=== PATIENT | female | born 1945 | race Caucasian/White ===

== ENCOUNTER → 2016-06-25 | Outpatient (CLI) | payer OTHER, BC | LOC: MMPC 11:11 | DX: J44.0 Chronic obstructive pulmonary disease with (acute) lower respiratory infection (principal) | CPT/HCPCS: 94640; 99212; G0463 ==

== ENCOUNTER → 2016-11-30 | Outpatient (CLI) | payer OTHER, BC ==
[2016-11-30 07:54] LABS: HEMATOCRIT 38.3 % (37.0-47.0); HEMOGLOBIN 11.8 g/dL (12.0-16.0); MEAN CORPUSCULAR HEMOGLOBIN 26.2 PG (27-31); MEAN CORPUSCULAR HGB CONC 30.8 g/dL (33-37); MEAN CORPUSCULAR VOLUME 84.9 FL (81-99); MEAN PLATELET VOLUME 8.2 FL (7.4-12.2); RED BLOOD COUNT 4.51 10^6/uL (4.20-5.40)
[2016-11-30 08:13] LABS: HEMOGLOBIN A1C 6.76 % (4.2-6.0)
[2016-11-30 08:14] LABS: CALCIUM 9.5 mg/dL (8.7-10.7); CHOL/HDL RATIO 2.82 RATIO (0-4.0); LDL CHOLESTEROL,CALCULATED 58.2 mg/dL; SERUM ALBUMIN 3.8 g/dL (3.5-4.8)
[2016-11-30 08:27] LABS: FREE T4 (FREE THYROXINE) 1.45 ng/dL (0.93-1.71)
[2016-12-01 08:41] LABS: HEP B CORE IGM ANTIBODY Negative (Negative); HEPATITIS A IGM Negative (Negative); HEPATITIS B SURFACE AG Negative (Negative)
== END ==
LOC: LAB 07:19
PROVIDERS: ATTEND Family Medicine
DX: E11.9 Type 2 diabetes mellitus without complications (principal); I10 Essential (primary) hypertension; D50.0 Iron deficiency anemia secondary to blood loss (chronic); Z11.59 Encounter for screening for other viral diseases; F17.200 Nicotine dependence, unspecified, uncomplicated
CPT/HCPCS: 36415; 80053; 80061; 83036; 84439; 84443; 85027; 86705; 86709; 86803; 87340

== ENCOUNTER → 2016-12-02 | Outpatient (CLI) | payer OTHER, BC | LOC: MMPC 09:00 | PROVIDERS: ATTEND Family Medicine | DX: J44.9 Chronic obstructive pulmonary disease, unspecified (principal); E11.9 Type 2 diabetes mellitus without complications; I10 Essential (primary) hypertension; L98.8 Other specified disorders of the skin and subcutaneous tissue | CPT/HCPCS: 99214; G0463 ==

== ENCOUNTER 2016-12-21 09:51 | Inpatient (IN) | payer OTHER, BC ==
[2016-12-21] MEDS ORDERED: NORMAL SALINE 10 ML SYRINGE FLUSH IVP PRN (10:08)
[2016-12-21] MEDS ORDERED: ALBUTEROL SULFATE 2.5 MG/3 ML NEB ONE (10:08)
--- NOTE | 2016-12-21 10:15 | EKG ---
[address] [place] [address] Measurements Intervals [place] Rate: 109 P: 24 IN: 140 QRS: 149 QRSD: 88 T: 49 QT: 324 QTc: 388 Interpretive Statements SINUS TACHYCARDIA WITH OCCASIONAL SUPRAVENTRICULAR PREMATURE COMPLEXES POSSIBLE RIGHT VENTRICULAR HYPERTROPHY [SOME/ALL OF: PROMINENT R IN V1, LATE TRANSITION, RAD, ZULEMA, SSS] Compared to ECG 09/14/2015 08:17:12 Sinus rhythm no longer present Sinus arrhythmia no longer present Electronically Signed On 12-21-16 11:19:01 MDT by Tre Gardner MD [email or web address]
--- NOTE | 2016-12-21 10:19 | PDOC ---
Dyspnea HPI - General Chief Complaint: Dyspnea Stated Complaint: "I CAN'T GET ANY AIR" Date Seen by Provider: 12/21/16 Time Seen by Provider: 10:13 Source: POSITIVE: Patient Exam Limitations: POSITIVE: No limitations Treatment Prior to Arrival: REPORTS: None Nurse's Notes Reviewed & Considered: Yes - History of Present Illness Initial Comments: Patient is a 71 y/o female who presents to the ER with SOB. She reports that this started in the morning. Possible cough. Has used inhaler without improvement. Had chest pain last week, left sided, no exacerbating or relieving factors. She had discussed this with her regular doctor who told her that it was something with her ribs. Patient denies fevers, but did not take her temperature. Patient did have a single episode of nausea and vomiting this morning. She does continue to smoke despite her COPD. No pain or swelling in her lower extremities. She does report that this feels similar to her prior pneumonia. - Patient Home Medications Home Medications: Home Medications Ascorbic Acid [Vitamin C] 1 tab PO BID 06/21/11 Glucosa Talavera 2Kcl/Chondroitin Talavera [Glucosamine Chondroitin Caplet] 1 each PO BID # 0 10/29/11 Magnesium 250 mg PO BID #0 10/29/11 Cetirizine HCl [Zyrtec] 1 mg PO DAILY tab 12/31/13 Calcium Citrate/Vitamin D3 [Citracal-Vit D 200 mg-250 Tab] 1 each PO DAILY tab 05/07/15 Guaifenesin [Mucinex] 1,200 mg PO BID #60 tab 05/07/15 Pnv95/Iron Fum/Folic Acid [ Caplet] 1 each PO DAILY tab 05/07/15 Atorvastatin Calcium [Lipitor] 10 mg PO DAILY #90 tab 12/04/15 Citalopram Hydrobromide [Celexa] 1 tab PO DAILY #90 tab 12/04/15 Montelukast Sodium [Singulair] 1 tab PO QD #90 tab 04/19/16 Tiotropium [place] [Spiriva] 1 puff INH DAILY #90 inh 06/09/16 Albuterol Sulfate [Ventolin Hfa] 2 puff INH Q4-6H #1 inh 07/05/16 Amlodipine Besylate 1 tab PO DAILY #30 tab 08/13/16 Bupropion HCl [Wellbutrin Sr] 1 tab PO QD #30 tab 08/16/16 Mometasone/Formoterol [Dulera 200 Mcg/5 Mcg Inhaler] 2 puff INH BID #3 inhaler 10/11/16 Alprazolam 1 tab PO TID #60 tab 12/03/16 Fluticasone Propionate [Flovent Hfa] 1 puff INH QID #1 inh 12/03/16 - Patient Allergies Allergies/Adverse Reactions: Allergies Allergy/AdvReac Type Severity Reaction Status Date / Time chocolate flavor Allergy Severe Anaphylaxis Verified 12/21/16 10:02 venom-honey bee Allergy Severe Anaphylaxis Verified 12/21/16 10:02 oxycodone HCl [From Percocet] AdvReac Severe sedated, Verified 12/21/16 10:02 lost 3 days of memory, disorientation CHOCOLATE Allergy Severe Anaphylaxis Uncoded 12/21/16 10:02 FRAGRANCES AdvReac Severe MULTIPLE Uncoded 12/21/16 10:02 DIFF REACTIONS TO NUMEROUS FRAGRANCES Past Medical History - heen HEENT History: Cataracts, Hard of Hearing, Dentures/Partials Additional HEENT History: ELY SHOSHONE out of right ear. Cataract surgery on the right eye. FULL DENTURES Cardiovascular History: Hypertension, Hyperlipidemia Additional Cardiovasular History: CHEST PAIN-SENT TO [facility]- FOUND SMALL AMOUNT OF PLAQUE AND NOW ON LIPITOR Respiratory History: Asthma, COPD, Shortness of Breath, Pneumonia, Sleep Apnea, Home Oxygen Use Gastrointestinal History: Denies History Genitourinary History: Denies History Endocrine History: Denies History Additional Endocrine History: PT WAS PUT ON DIABETIC MEDICATION AND THEN LOST 50 PLUS POUNDS AND NO LONGER ON MEDICATION Musculoskeletal History: Arthritis, Back Pain, Joint Pain, Osteoarthritis Prosthesis or Implant: No Neurological History: Denies History Blood Disorders: Anemia Psychiatric History: Depression, Anxiety Disorders History of Sexually Transmitted Diseases: No Cancer History: Breast, Other (please comment) Cancer Treatment / Date(s) of Treatment: LUMPECTOMY AND RADIATION IN 2006 History of MDRO: No History of Other Communicable Diseases: No Alcohol Use: Rarely Substance Use Type: None Previous Surgical History: Yes Type / Date of Surgery: CORONARY ANGIOGRAM 2013/UTERINE ABLATION/ RIGHT LUMPECTOMY 1956/ SEACEOUS CYST/ MOLE EXCISION/ D&C/LUMPECTOMY Anesthesia Reactions: No Malignant Hyperthermia: No Significant Family History: Asthma, Heart disease, Cancer, COPD, Diabetes, Hypertension, Lung disease, Renal disease Additional Family History: MOTHER HAD BREAST CA, FATHER HAD THROAT CA Past Medical History Reviewed: Reviewed - No Changes ROS - Limitations ROS Limitations: No Limitations Constitution: DENIES: Chills, Fever Cardiovascular: REPORTS: Chest Pain Respiratory: REPORTS: Cough Non Productive, Shortness Of Breath. DENIES: Hurts To Breathe Neurological: REPORTS: Headache Gastrointestinal: REPORTS: Nausea, Vomitting Endocrine: REPORTS: Denies Symptoms Musculoskeletal: REPORTS: Muscle Aches, Neck Pain Genitourinary: REPORTS: Denies Symptoms Eyes: REPORTS: Denies Symptoms ENT: REPORTS: Denies Symptoms Skin: REPORTS: Denies Skin Symptoms Lympathic: REPORTS: Denies Lympathic Symptoms Immunologic: POSITIVE: Denies Symptoms Psychiatric: POSITIVE: Denies Psych Symptoms Dyspnea Physical Exam - General Appearance General Appearance: REPORTS: Alert, Cooperative, No Acute Distress, No Evidence of Trauma - HEENT HEENT: POSITIVE: Head Inspection Nml, Eyes Inspection Nml, Ears Inspection Nml, Nose Inspection Nml, PERRL - Neck Neck: REPORTS: Normal Inspection - Respiratory Respiratory: REPORTS: Speaks Full Sentences, Wheezes. DENIES: Respiratory Distress, Retractions - Cardiovascular Cardiovascular: REPORTS: Tachycardia - Abdomen Abdomen: Soft: (All Quadrants), Normal Bowel Sounds: (All Quadrants), No Splenomegaly: (All Quadrants), No Hepatomegaly: (All Quadrants), No Guarding: ( All Quadrants), No Rebound: (All Quadrants) - Skin Skin: REPORTS: Intact, Warm, Dry - Extremities Extremity: Non-Tender: (All Extremities), Normal ROM: (All Extremities), Normal Inspection: (All Extremities) - Neurological / Psychological Neurological: POSITIVE: Affect Apporpriate, Oriented X3 Dyspnea Progress - Results Reviewed by me Discussed with Radiologist: Yes Radiology Findings: Left lower lobe PNA Lab Results:: Laboratory Results 12/21/16 Range/Units 10:13 WBC 15.73 H (4.8-10.8) 10^3/uL RBC 4.73 (4.20-5.40) 10^6/uL Hgb 12.0 (12.0-16.0) g/dL Hct 39.8 (37.0-47.0) % MCV 84.1 (81-99) FL MCH 25.4 L (27-31) PG MCHC 30.2 L (33-37) g/dL RDW Std Deviation 46.9 (39-50) fL RDW Coeff of Kevin 15.4 H (11.5-14.5) % Plt Count 374 H (140-350) 10*3/uL MPV 8.3 (7.4-12.2) FL Immature Gran % (Auto) 0.3 (0-5) % Neut % (Auto) 82.7 H (50-80) % Lymph % (Auto) 8.3 L (10-50) % [place] % (Auto) 8.1 (5-15) % Eos % (Auto) 0.3 (0-8) % Baso % (Auto) 0.3 (0-1) % Immature Gran # (Auto) 0.05 10*3/UL Neut # (Auto) 13.02 10*3/UL Lymph # (Auto) 1.30 10*3/uL [place] # (Auto) 1.27 H (0.3-0.8) 10*3/UL Eos # (Auto) 0.05 10*3/UL Baso # (Auto) 0.04 10*3/UL WBC Morphology Comment Normal morphology (NORM) Plt Morphology Comment Normal morphology (NORM) RBC Morph Comment Normal morphology (NORM) Sodium 135 (135-145) meq/L Potassium 4.0 (3.8-5.2) meq/L Chloride 96 L (98-112) meq/L Carbon Dioxide 34 H (23-33) meq/L Anion Gap 5 (5-20) BUN 8 (7-22) mg/dL Creatinine 0.4 L (0.50-1.20) mg/dL Estimated GFR Nursing Program Manager BUN/Creatinine Ratio 20.00 (6-20) Glucose 249 H (78-110) mg/dL Calculated Osmolality 285.0 (267-292) mOsm/kg Calcium 9.5 (8.7-10.7) mg/dL Total Bilirubin 0.7 (0.3-1.2) mg/dL AST 27 (8-39) IU/L ALT 25 (9-52) IU/L Alkaline Phosphatase 99 (38-126) IU/L Troponin I < 0.012 (< 0.040) ng/mL Total Protein 8.1 H (6.1-8.0) g/dL Albumin 3.7 (3.5-4.8) g/dL Globulin 4.4 H (2.50-4.10) g/dL Albumin/Globulin Ratio 0.80 L (1.3-2.0) mg/g EKG Interpretation:: POSITIVE: Other ( Sinus tachycardia. PAC. No STEMI. Normal axis.) - Patient's Progress MDM / ED Course: Patient is a 71 y/o female who presents with SOB. Her vitals are notable for tachycardia and hypoxia. Examination demonstrates well appearing female in NAD with wheezing. Differential diagnosis includes but is not limited to COPD exacerbation, ACS, viral syndrome, or PNA. EKG demonstrates sinus tachycardia without acute changes. CBC was noted for elevated WBC. Lactate is normal. Her VBG does not demonstrate evidence of respiratory acidosis. Patient was treated with albuterol nebulizer with improvement in wheezing. CXR does demonstrate findings consistent with left lower lobe PNA. Blood cultures were drawn and patient was given ceftriaxone and azithromycin. Patient will be admitted for further treatment. - Consult Consult (If Yes, Name of Consulting MD & Time Called): Yes (Nichole ) Consulting MD will see pt:: POSITIVE: [facility] [place] Patient Care Time - Estimated PCT Patient Care Time (In Minutes): 35 Vital Signs - Recent Vital Signs Vital Signs: Vital Signs (Last 8 hours) Temp Pulse Resp BP Pulse Ox 12/21/16 11:47 99.3 F 12/21/16 11:46 99.3 F 102 H 18 116/61 91 12/21/16 11:19 103 H 20 123/66 93 12/21/16 10:10 106 H 22 93 12/21/16 10:05 108 H 24 95 12/21/16 10:00 99.7 F H 111 H 24 136/71 78 12/21/16 09:52 99.7 F H 125 H 24 136/71 2 - VS Reviewed Vital Signs Reviewed: Yes Discharge Clinical Impression: Pneumonia Discharge Disposition: Admit to Inpatient Condition: Fair Date Decision to Admit to Inpatient: 12/21/16 Time Decision to Admit to Inpatient: 11:43
[2016-12-21 10:25] LABS: BASOPHILS # (AUTO) 0.04 10*3/UL; BASOPHILS % (AUTO) 0.3 % (0-1); EOSINOPHILS # (AUTO) 0.05 10*3/UL; EOSINOPHILS % (AUTO) 0.3 % (0-8); HEMATOCRIT 39.8 % (37.0-47.0); MEAN CORPUSCULAR HEMOGLOBIN 25.4 PG (27-31); MEAN CORPUSCULAR HGB CONC 30.2 g/dL (33-37); MEAN CORPUSCULAR VOLUME 84.1 FL (81-99); MEAN PLATELET VOLUME 8.3 FL (7.4-12.2); MONOCYTES # (AUTO) 1.27 10*3/UL (0.3-0.8); MONOCYTES % (AUTO) 8.1 % (5-15); NEUTROPHILS # (AUTO) 13.02 10*3/UL; NEUTROPHILS % (AUTO) 82.7 % (50-80); RED BLOOD COUNT 4.73 10^6/uL (4.20-5.40)
[2016-12-21 10:27] LABS: PLATELET MORPHOLOGY COMMENT NORMAL MORPHOLOGY (NORM); RBC MORPHOLOGY COMMENT NORMAL MORPHOLOGY (NORM); WBC MORPHOLOGY COMMENT NORMAL MORPHOLOGY (NORM)
[2016-12-21 10:29] LABS: BLOOD UREA NITROGEN 8 mg/dL (7-22); CALCIUM 9.5 mg/dL (8.7-10.7); SERUM ALBUMIN 3.7 g/dL (3.5-4.8)
[2016-12-21] MEDS ORDERED: IBUPROFEN 600 MG TABLET PO ONE (10:58)
[2016-12-21] MEDS ORDERED: cefTRIAXone Inj 1 GM in Sodium Chloride 0.9% 100 ML IV ONE (11:27)
[2016-12-21] MEDS ORDERED: AZITHROMYCIN 250 MG TABLET PO ONE (11:27)
--- NOTE | 2016-12-21 11:27 | DI ---
PA /LATERAL CHEST X-RAY, 12/21/2016 10:08 AM : Clinical History: Cough and dyspnea. Previous Exam: 09/06/2015; 09/14/2015. Comparison is also made with a CT scan with IV contrast from 2015. There is no acute soft tissue or bony abnormality. Heart size is normal. There is a left lower lobe p neumonia with blunting of the left costophrenic angle probably representing a small amount of fluid. There is centrilobular emphysema with pulmonary arterial hypertension. On the lateral view, there is a posteroinferior hilar density that may represent adenopathy. This density lies inferior to the trac hea and the left mainstem bronchus and anterior to the lower thoracic spine probably at the level of T10. This density was not present on the previous chest x-ray from 09/06/[address] scan of the chest of the same date. No definite lung mass is identified. There are no pulmonary nodules. Readin. Left lower lobe pneumonia. There is an infrahilar mass located posteriorly that may be on the lef t side, and if so, this would be consistent with reactive lymph node enlargement. A mass cannot entir martir be excluded, and a followup chest x-ray or a CT scan of the chest with IV contrast can be perform ed. 2. Centrilobular emphysema with pulmonary arterial hypertension.
[2016-12-21] MEDS ORDERED: Sodium Chloride 0.9% 1,000 ML PRIMARY IV ONE (11:31)
[2016-12-21 11:48] LABS: VENOUS PH 7.46 (7.32-7.42)
--- NOTE | 2016-12-21 11:55 | PDOC ---
History and Physical - History of Present Illness History of Present Illness: This very nice 21-year-old female with past medical history significant with COPD and active smoker comes to the ER complaining of shortness of breath this started yesterday is been using her inhaler without much improvement had some left-sided chest pain last week seen her primary care physician was told it was most likely costochondritis had the one episode of nausea and vomiting and in the ER after x-ray evaluation was found to have a left lower lobe pneumonia also possible mass Will order CT scan of the chest . will be admitted for further evaluation and treatment of such Past Medical History Medical History: COPD, diabetes, history of breast cancer, osteoarthritis, osteopenia, tobacco abuse, had a positive stress test with EF of 74%, and an angiogram which revealed an insignificant blockage with no stent placed. 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 Tobacco Use: Current Every Day Smoker Substance Use Type: None Medication / Allergies Home Medications: Home Medications Medication Instructions Recorded Confirmed Type Ascorbic Acid [Vitamin C] 1 tab PO BID 06/21/11 12/21/16 History Glucosa Talavera 2Kcl/Chondroitin Talavera 1 each PO BID #0 10/29/11 12/21/16 Clinic [Glucosamine Chondroitin Caplet] Magnesium 250 mg PO BID #0 10/29/11 12/21/16 Clinic Cetirizine HCl [Zyrtec] 1 mg PO DAILY tab 12/31/13 12/21/16 History Calcium Citrate/Vitamin D3 1 each PO DAILY tab 05/07/15 12/21/16 History [Citracal-Vit D 200 mg-250 Tab] Guaifenesin [Mucinex] 1,200 mg PO BID #60 tab 05/07/15 12/21/16 Clinic Pnv95/Iron Fum/Folic Acid 1 each PO DAILY tab 05/07/15 12/21/16 History [ Caplet] Atorvastatin Calcium [Lipitor] 10 mg PO DAILY #90 tab 12/04/15 12/21/16 Clinic Citalopram Hydrobromide [Celexa] 1 tab PO DAILY #90 tab 12/04/15 12/21/16 Clinic Montelukast Sodium [Singulair] 1 tab PO QD #90 tab 04/19/16 12/21/16 Clinic Tiotropium [place] [Spiriva] 1 puff INH DAILY #90 inh 06/09/16 12/21/16 Clinic Albuterol Sulfate [Ventolin Hfa] 2 puff INH Q4-6H #1 inh 07/05/16 12/21/16 Clinic Amlodipine Besylate 1 tab PO DAILY #30 tab 08/13/16 12/21/16 Clinic Bupropion HCl [Wellbutrin Sr] 1 tab PO QD #30 tab 08/16/16 12/21/16 Clinic Mometasone/Formoterol [Dulera 200 2 puff INH BID #3 inhaler 10/11/16 12/21/16 Clinic Mcg/5 Mcg Inhaler] Alprazolam 1 tab PO TID #60 tab 12/03/16 12/21/16 Clinic Fluticasone Propionate [Flovent 1 puff INH QID #1 inh 12/03/16 12/21/16 Clinic Hfa] Allergies/Adverse Reactions: Allergies Allergy/AdvReac Type Severity Reaction Status Date / Time chocolate flavor Allergy Severe Anaphylaxis Verified 12/21/16 18:20 venom-honey bee Allergy Severe Anaphylaxis Verified 12/21/16 18:20 oxycodone HCl [From Percocet] AdvReac Severe sedated, Verified 12/21/16 18:20 lost 3 days of memory, disorientation CHOCOLATE Allergy Severe Anaphylaxis Uncoded 12/21/16 18:20 FRAGRANCES AdvReac Severe MULTIPLE Uncoded 12/21/16 18:20 DIFF REACTIONS TO NUMEROUS FRAGRANCES Review of Systems - Review of Systems All Systems: Reviewed & No Additional Complaints Except as Stated Exam - Vitals Vital Signs: Vital Signs Temperature 99.3 F Temperature Source Temporal Artery Scan Pulse Rate [Pulse Oximeter 102 Right] Respiratory Rate 18 Blood Pressure [Right Arm] 116/61 Pulse Ox 91 Oxygen Delivery Method Nasal Cannula Height 5 ft 6 in Weight 58.967 kg - General General Appearance: POSITIVE: Cooperative - Head Head Exam: POSITIVE: Normal Inspection, Normocephalic, Atraumatic - Neck Neck Exam: POSITIVE: Normal Inspection - Respiratory Respiratory Exam: POSITIVE: Decreased Breath Sounds, Rhonci, Wheezes - Cardiovascular Cardiovascular Exam: POSITIVE: RRR, No Murmur, No Clicks - GI/Abdominal GI/Abdominal Exam: POSITIVE: Non Tender, Non Distended, Soft - Extremities Extremities Exam: POSITIVE: No Clubbing Present, No Edema Present, No Cyanosis Present Results - Labs CBC and BMP: 12/22/16 04:30 12/22/16 04:30 Labs - Last 24 Hours: Laboratory Results 12/21/16 12/21/16 Range/Units 10:13 11:41 WBC 15.73 H (4.8-10.8) 10^3/uL RBC 4.73 (4.20-5.40) 10^6/uL Hgb 12.0 (12.0-16.0) g/dL Hct 39.8 (37.0-47.0) % MCV 84.1 (81-99) FL MCH 25.4 L (27-31) PG MCHC 30.2 L (33-37) g/dL RDW Std Deviation 46.9 (39-50) fL RDW Coeff of Kevin 15.4 H (11.5-14.5) % Plt Count 374 H (140-350) 10*3/uL MPV 8.3 (7.4-12.2) FL Immature Gran % (Auto) 0.3 (0-5) % Neut % (Auto) 82.7 H (50-80) % Lymph % (Auto) 8.3 L (10-50) % [place] % (Auto) 8.1 (5-15) % Eos % (Auto) 0.3 (0-8) % Baso % (Auto) 0.3 (0-1) % Immature Gran # (Auto) 0.05 10*3/UL Neut # (Auto) 13.02 10*3/UL Lymph # (Auto) 1.30 10*3/uL [place] # (Auto) 1.27 H (0.3-0.8) 10*3/UL Eos # (Auto) 0.05 10*3/UL Baso # (Auto) 0.04 10*3/UL WBC Morphology Comment Normal morphology (NORM) Plt Morphology Comment Normal morphology (NORM) RBC Morph Comment Normal morphology (NORM) VBG pH 7.46 H (7.32-7.42) VBG pCO2 42 L (45-55) mmHg VBG HCO3 30 H (22-26) mmol/L VBG Base Excess 6 H (-2-2) MMOL/L Sodium 135 (135-145) meq/L Potassium 4.0 (3.8-5.2) meq/L Chloride 96 L (98-112) meq/L Carbon Dioxide 34 H (23-33) meq/L Anion Gap 5 (5-20) BUN 8 (7-22) mg/dL Creatinine 0.4 L (0.50-1.20) mg/dL Estimated GFR Feed Research Technician BUN/Creatinine Ratio 20.00 (6-20) Glucose 249 H (78-110) mg/dL Calculated Osmolality 285.0 (267-292) mOsm/kg Calcium 9.5 (8.7-10.7) mg/dL Total Bilirubin 0.7 (0.3-1.2) mg/dL AST 27 (8-39) IU/L ALT 25 (9-52) IU/L Alkaline Phosphatase 99 (38-126) IU/L Troponin I < 0.012 (< 0.040) ng/mL Total Protein 8.1 H (6.1-8.0) g/dL Albumin 3.7 (3.5-4.8) g/dL Globulin 4.4 H (2.50-4.10) g/dL Albumin/Globulin Ratio 0.80 L (1.3-2.0) mg/g Assessment and Plan - Patient Problems (1) Pneumonia Current Visit: Yes Status: Acute (2) COPD (chronic obstructive pulmonary disease) Current Visit: No Status: Acute Qualifiers: Qualified Description: Chronic obstructive pulmonary disease, unspecified COPD type Qualifier Code(s): (J44.9) Chronic obstructive pulmonary disease , unspecified (3) Hypertension Current Visit: No Status: Acute (4) Tobacco abuse Current Visit: No Status: Acute - Assessment / Plan Additional Assessment/Plan Details: #1 left lower lobe pneumonia2 g Rocephin daily 500 of Zithromax daily for Legionella antigen also CT scan of the chest rule out PE and possible mass on chest x-ray #2 there is mention of pulmonary hypertension I will order an echo for the morning. #3 tobacco abuse counseled patient will start nicotine patch
[2016-12-21] MEDS ORDERED: IPRATROPIUM/ALBUTEROL SULFATE 3 ML NEB NEB PRN (12:14)
[2016-12-21] MEDS ORDERED: LIDOCAINE W/ SODIUM BICARB 0.5 ML SYR SUBD PRN (12:14)
[2016-12-21] MEDS ORDERED: ONDANSETRON 4 MG/2 ML VIAL IVP PRN (12:14)
[2016-12-21] MEDS ORDERED: cefTRIAXone Inj 2 GM in Sodium Chloride 0.9% 100 ML IV SCH (12:14)
--- NOTE | 2016-12-21 13:19 | DI ---
CT ANGIOGRAM OF THE CHEST, 12/21/2016 12:14 PM : Clinical History: Cough. Abnormal chest x-ray showing an infrahilar mass. Previous Exam: 09/06/2015. Scans are performed from the base of the neck to the lower lung bases following IV administration of 70 mL of Isovue 300. Proprietary automated bolus tracking software was not used to verify the timing of the injection. The base of the neck and thoracic inlet are normal. There are no abnormal axillary, supraclavicular, mediastinal, or hilar nodes. The infrahilar density seen on the lateral chest x-ray apparently was a summation artifact. The heart is normal. Coronary artery calcifications are present in the proximal h sandra of the LAD, in the left circumflex branch, and in the right coronary artery. There is pulmonary a rterial hypertension without evidence of pulmonary embolism or ulnar embolism with infarction. This p atient has bilateral lower lobe infiltrates, greater on the left side than the right with a small ple ural effusion. There is bronchiectasis in the pattern in both lower lobes is indicative of chronic as piration pneumonitis. Small bullae are present in the upper lobes indicating bullous emphysema. There is a 3-4 mm nodule in the left lower lobe that was present on the CT scan from 11/16/2014, and has no t changed. The stability over 25 months indicates this nodule is a benign granuloma. Both adrenal gla nds, the spleen, and the visualized portions of the liver and pancreas are normal. READIN. The CT angiogram of the chest shows pulmonary arterial hypertension without evidence of pulmonary emboli or pulmonary emboli with infarction. 2. Bilateral aspiration pneumonitis, greater on the left side than the right with chronic bronchiect asis bilaterally. There is a small left pleural effusion. 3. Bullous emphysema. 4. Old granulomatous disease. Coronary artery disease manifested by calcifications in the LAD, left circumflex artery, and the right coronary artery. 5. There is no infrahilar mass as was indicated on the chest x-ray. The findings on the chest x-ray are consistent with a summation artifact rather than an infrahilar mass.
[2016-12-21] MEDS: BuPROPion SR Tab 150 MG TAB PO SCH (14:46)
[2016-12-21] MEDS: ALPRAZolam Tab 0.25 MG TABLET PO SCH ×2 (14:47→20:22)
[2016-12-21] MEDS: HEPARIN 5000 UNIT/1 ML SUBCUT SCH ×2 (14:47→20:22)
[2016-12-21] MEDS: metroNIDAZOLE 500mg (Premix) 500 MG in Premix 1 BAG IV SCH ×2 (15:02→23:31)
[2016-12-21] MEDS: FLUTICASONE HFA 110 MCG - 12 GM INHALER INH SCH ×2 (16:09→19:45)
[2016-12-21] MEDS ORDERED: Sodium Chloride 0.9% 1,000 ML ONE (18:48)
[2016-12-21] MEDS: ALBUTEROL SULFATE 8.5 GM HFA INHALER INH PRN ×2 (19:42→23:39)
[2016-12-21] MEDS: DULERA INH SCH (19:45)
[2016-12-21] MEDS ORDERED: ALBUTEROL SULFATE 2.5 MG/3 ML NEB PRN (20:01)
[2016-12-21] MEDS: ASCORBIC ACID 500 MG TABLET PO SCH (20:22)
[2016-12-21] MEDS: GUAIFENESIN 600 MG TABLET PO SCH (20:22)
[2016-12-21] MEDS: ATORVASTATIN 10 MG TABLET PO SCH (20:22)
[2016-12-22] MEDS: ALBUTEROL SULFATE 8.5 GM HFA INHALER INH PRN (04:25)
[2016-12-22 04:39] LABS: BASOPHILS # (AUTO) 0.02 10*3/UL; BASOPHILS % (AUTO) 0.2 % (0-1); EOSINOPHILS # (AUTO) 0.09 10*3/UL; EOSINOPHILS % (AUTO) 0.8 % (0-8); HEMATOCRIT 35.8 % (37.0-47.0); LYMPHOCYTES # (AUTO) 1.36 10*3/uL; MEAN CORPUSCULAR HEMOGLOBIN 26.1 PG (27-31); MEAN CORPUSCULAR HGB CONC 30.7 g/dL (33-37); MEAN CORPUSCULAR VOLUME 84.8 FL (81-99); MEAN PLATELET VOLUME 8.3 FL (7.4-12.2); MONOCYTES # (AUTO) 1.35 10*3/UL (0.3-0.8); MONOCYTES % (AUTO) 12.4 % (5-15); NEUTROPHILS # (AUTO) 8.04 10*3/UL; NEUTROPHILS % (AUTO) 73.8 % (50-80); RED BLOOD COUNT 4.22 10^6/uL (4.20-5.40)
[2016-12-22 04:40] LABS: PLATELET MORPHOLOGY COMMENT NORMAL MORPHOLOGY (NORM); RBC MORPHOLOGY COMMENT NORMAL MORPHOLOGY (NORM); WBC MORPHOLOGY COMMENT NORMAL MORPHOLOGY (NORM)
[2016-12-22 04:46] LABS: PHOSPHORUS 3.9 mg/dl (2.4-4.3); SERUM ALBUMIN 3.3 g/dL (3.5-4.8)
[2016-12-22] MEDS: MAGNESIUM OXIDE 400 MG TABLET PO SCH (06:52)
[2016-12-22] MEDS: metroNIDAZOLE 500mg (Premix) 500 MG in Premix 1 BAG IV SCH ×3 (06:53→23:56)
[2016-12-22] MEDS: FLUTICASONE HFA 110 MCG - 12 GM INHALER INH SCH ×4 (07:05→18:44)
[2016-12-22] MEDS: DULERA INH SCH ×2 (07:05→18:43)
[2016-12-22] MEDS: IBUPROFEN 800 MG TABLET PO PRN (08:27)
[2016-12-22] MEDS: BuPROPion SR Tab 150 MG TAB PO SCH (08:27)
[2016-12-22] MEDS: Calcium/Vit D 600mg/400u Tab 1 TAB TABLET PO SCH (08:27)
[2016-12-22] MEDS: ALPRAZolam Tab 0.25 MG TABLET PO SCH ×3 (08:27→21:27)
[2016-12-22] MEDS: AmLODIPine Tab 2.5 MG TABLET PO SCH (08:28)
[2016-12-22] MEDS: CITALOPRAM 20 MG TABLET PO SCH (08:28)
[2016-12-22] MEDS: LORATADINE 10 MG TABLET PO SCH (08:28)
[2016-12-22] MEDS: Multivitamin Tab 1 TAB PO SCH (08:28)
[2016-12-22] MEDS: Montelukast Tab 10 MG TAB PO SCH (08:28)
[2016-12-22] MEDS: ASCORBIC ACID 500 MG TABLET PO SCH ×2 (08:28→21:27)
[2016-12-22] MEDS: GUAIFENESIN 600 MG TABLET PO SCH ×2 (08:32→21:27)
[2016-12-22] MEDS ORDERED: CETIRIZINE HCL 1 MG PO SCH (09:00)
--- NOTE | 2016-12-22 11:17 | PDOC(PROG) ---
Interval History: Patient is doing much better today she did have a swallow study who we are awaiting results as per Mitch status is improved Objective : Data - Labs CBC and BMP: 12/22/16 04:30 12/22/16 04:30 Labs - Last 24 Hours: Laboratory Results 12/21/16 12/22/16 Range/Units 11:45 04:30 WBC 10.89 H (4.8-10.8) 10^3/uL RBC 4.22 (4.20-5.40) 10^6/uL Hgb 11.0 L (12.0-16.0) g/dL Hct 35.8 L (37.0-47.0) % MCV 84.8 (81-99) FL MCH 26.1 L (27-31) PG MCHC 30.7 L (33-37) g/dL RDW Std Deviation 46.8 (39-50) fL RDW Coeff of Kevin 15.4 H (11.5-14.5) % Plt Count 315 (140-350) 10*3/uL MPV 8.3 (7.4-12.2) FL Immature Gran % (Auto) 0.3 (0-5) % Neut % (Auto) 73.8 (50-80) % Lymph % (Auto) 12.5 (10-50) % [place] % (Auto) 12.4 (5-15) % Eos % (Auto) 0.8 (0-8) % Baso % (Auto) 0.2 (0-1) % Immature Gran # (Auto) 0.03 10*3/UL Neut # (Auto) 8.04 10*3/UL Lymph # (Auto) 1.36 10*3/uL [place] # (Auto) 1.35 H (0.3-0.8) 10*3/UL Eos # (Auto) 0.09 10*3/UL Baso # (Auto) 0.02 10*3/UL WBC Morphology Comment Normal morphology (NORM) Plt Morphology Comment Normal morphology (NORM) RBC Morph Comment Normal morphology (NORM) Sodium 138 (135-145) meq/L Potassium 4.0 (3.8-5.2) meq/L Chloride 101 (98-112) meq/L Carbon Dioxide 33 (23-33) meq/L Anion Gap 4 L (5-20) BUN 8 (7-22) mg/dL Creatinine 0.5 (0.50-1.20) mg/dL Estimated GFR (>60 ml/min/1.73m(2)) BUN/Creatinine Ratio 16.00 (6-20) Glucose 138 H (78-110) mg/dL Calculated Osmolality 285.0 (267-292) mOsm/kg Lactic Acid 0.6 L (0.70-2.10) MMOL/L Calcium 9.0 (8.7-10.7) mg/dL Phosphorus 3.9 (2.4-4.3) mg/dl Albumin 3.3 L (3.5-4.8) g/dL Objective : Exam - Head Head Exam: Normal Inspection - Eye Eye Exam: Normal Appearance - Respiratory Respiratory Exam: Decreased Breath Sounds - Cardiovascular Cardiovascular Exam: RRR, No Murmur, No Clicks - GI/Abdominal GI/Abdominal Exam: Non Tender, Non Distended, Soft - Extremities Extremities Exam: No Clubbing Present, No Edema Present, No Cyanosis Present - Neurological Neurological Exam: Alert, Oriented x 3, No Facial Droop, Speech Intact / Clear Assessment and Plan - Patient Problems (1) Pneumonia Current Visit: Yes Status: Acute Comment: Bilateral pneumonia most likely aspiration swallow study has been done we will await results continue Rocephin and Flagyl (2) COPD (chronic obstructive pulmonary disease) Current Visit: No Status: Acute Comment: Continue inhalers Qualifiers: Qualified Description: Chronic obstructive pulmonary disease, unspecified COPD type Qualifier Code(s): (J44.9) Chronic obstructive pulmonary disease , unspecified (3) Hypertension Current Visit: No Status: Acute Comment: Controlled stable (4) Tobacco abuse Current Visit: No Status: Acute Comment: Counseled interested in stopping she does ask me why she gets pneumonia as emphysema I told her that most likely multifactorial but cigarette smoking is a big culprit
--- NOTE | 2016-12-22 11:55 | PTI REPORT ---
Thank you for the referral of Gio Harrington. She was seen on 12/21/16 for an inpatient evaluation secondary to weakness. SUBJECTIVE: The patient is a 71-year-old female. The patient reports she was admitted to the hospital earlier today. She states she was with her daughter at [facility] and was experiencing chest pain and from there her daughter brought her to the emergency room. She states she has been in the hospital before for bouts of COPD. 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 The patient states she is normally on oxygen all the time; anywhere from 1-3 liters depending on her activity level and denies using any type of ambulatory assistive device at home. PAST MEDICAL HISTORY: Past medical history can be found in the patient's medical record. OBJECTIVE FINDINGS: Pain: The patient reports a pain level in her neck of 6/10 on the verbal analog scale (0=no pain, 10=worst pain) which she states is normal for her. Bed mobility/Transfers: The patient was able to perform all bed mobility and transfers with stand by assistance. Ambulation: The patient was able to ambulate within her room x15 feet consistently. Activities of daily living: The patient was able to perform 5 minutes of ADLs at the sink. All activities were performed with two liters of oxygen via nasal cannula, gait belt, and stand by assistance. Balance: The patient was able to perform single legged stance activities for less than three seconds each. She was able to perform tandem standing with hand hold assist x1. Range of motion: Her bilateral upper extremity and lower extremity range of motion is well within functional limits. Strength: The patient's upper extremity strength is 4/5 in bilateral lower extremities and 4/5 as tested in the seated position and through observation through ambulation. ASSESSMENT: Problem List: Decreased strength Decreased general mobility Decreased endurance Physical Therapy Goals: To be met by discharge from inpatient: Patient will be able to ambulate over 100 feet for independent, community, and household ambulation. Patient will increase strength to at least 4+/5 or greater for complete independence with all transfers and ambulation and to decrease fall risk. TREATMENT PLAN: Patient will be seen B.I.D during the week and one time per day over the weekend as an inpatient to address the above goals and objectives. INITIAL TREATMENT: Treatment today consisted of the initial evaluation activities only. SERA
--- NOTE | 2016-12-22 11:59 | PT.PROG ---
Progress Note Progress Note: S. Patient stated that she is very tired this morning, however she is feeling better today compared to yesterday. O. Patient performed supine exercises in the form of; heel slides, quad sets, ankle pumps, hip abduction/adduction, straight leg raises, and glute squeezes all x10 bilaterally. mini sit ups x 5. patient was left in bed with alarm and call light. A. Patient tolerated exercises fair this morning She requires frequent rest breaks to recover her breathing. She was unable to perform more exercises this morning due to fatigue however she agreed to do more this afternoon. Patient would continue to benefit from skilled therapy to increase strength, mobility and endurance. P. continue POC.
--- NOTE | 2016-12-22 15:42 | OTI REPORT ---
Thank you for the referral of Gio Harrington. She was seen on 12/22/16 for an occupational therapy swallow evaluation. SUBJECTIVE: The patient is a 71-year-old female who came into the hospital with difficulties breathing. She was diagnosed with aspiration pneumonia after x- rays. 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 The patient is independent with all ADLs and iADLs. The patient does report that she is on oxygen at home; 1-2 liters. The patient reports she doesn't usually have difficulties eating or drinking that she has recognized, but sometimes becomes short of breath when eating or talking a lot due to not breathing deeply while eating or talking. PAST MEDICAL HISTORY: Past medical history can be found in the patient's medical record. OBJECTIVE FINDINGS: Pre-Swallow Assessment: Alertness and responsiveness: The patient is alert and responsive and she has reliable yes and no responses. Facial symmetry: The patient has good facial symmetry. Volitional dry swallow: The patient demonstrated a volitional dry swallow with fair strength. Following commands: The patient is able to follow two step directions. Neglect/Apraxia: The patient does not demonstrate neglect or apraxia. Cough: The patient's cough is very echoy and raspy due to the pneumonia but she does seem to have a very productive cough. Nutrition and intake: The patient has been on a regular textured diet with thin liquids. Oxygen: The patient is on two liters of oxygen today and she does wear oxygen at home. Secretions: The patient is handling her own secretions and is not demonstrating drooling. Dentition: The patient does have partial dentures on the top and bottom and she does report that they fit well. Voice quality: Voice quality is good with no raspy or gurgly sounds. Tongue range of motion: Tongue range of motion is within normal limits for lateral movement. The patient is able to lateralize into the sulci of the mouth into the left, right, and anterior regions as well as lower parts of the mouth. Head control: Head control is good. Jaw mobility: Jaw mobility is good. Lip control: Lip control demonstrates good closure. Lingual function: Lingual function has good range of motion with strength of 100 %. Sensation: The patient has good sensation in all areas. Gag reflex: The patient has a good gag reflex. Swallow Evaluation: The patient was observed during a bedside swallow evaluation as well as lunch. During the bedside swallow evaluation the patient did have to take approximately 10 different medications from the nurse with a water. The patient was able to demonstrate a good swallow with different sized pills and multiple pills at a time. There were a few times that the patient did cough throughout, but she had been coughing since the therapist walked into the room, so it was very difficult to tell whether it was true aspiration of the water or if it was just timing of having to take the pills and not breathe and the pneumonia kicking in. The patient did not demonstrate any difficulties with pudding, applesauce, diced fruit, meat, or bread. The patient did report that the bread was dry but she was able to wash it down with the water and she did not demonstrate any gurgling or raspiness when talking. Once again, the patient did cough throughout the bedside swallow evaluation, but it never really coincided with what she was eating or drinking. The therapist does feel it was more of the pneumonia kicking in. The therapist was not very satisfied with the actual bedside swallow evaluation, so the therapist did sit with the patient again during lunch. The patient did have chicken tenders with a salad and strawberries and coffee and water. The patient seemed to handle the chicken tenders, salad, and cucumbers well and demonstrated very little coughing throughout. The patient was able to drink coffee and water with no obvious aspirations. ASSESSMENT: At this time the patient does seem to be handling thin liquids and a regular textured diet. She also seems to be able to take her pills whole with water with no obvious signs of aspiration. There is a slight chance that the patient may be pooling, so the patient was instructed to make sure she clears her throat often and make sure she sits up for at least 30 minutes to an hour after all meals, which the patient says she does anyway otherwise she gets an upset stomach. Nursing was notified of the findings and at this time we will discharge the patient on a regular textured diet and thin liquids. INITIAL TREATMENT: Treatment today consisted of the swallow evaluation activities only. SERA
--- NOTE | 2016-12-22 16:14 | PT.PROG ---
Progress Note Progress Note: S. Patient states she is very tired this afternoon however she would be willing to go for a walk this afternoon. O. Patient performed seated exercises in the form of; long arc quads, marches and heel toe raises, then ambulated 150 feet around the nurses station. She was left in the restroom with nursing. A. Patient tolerated activity well this afternoon. She continues to be weak and required short standing rest breaks to recover. She would continue to benefit from skilled therapy to increase strength, and endurance. P. Continue POC.
[2016-12-22] MEDS: ATORVASTATIN 10 MG TABLET PO SCH (21:27)
[2016-12-23] MEDS: FLUTICASONE HFA 110 MCG - 12 GM INHALER INH SCH ×4 (06:17→18:47)
[2016-12-23] MEDS: DULERA INH SCH ×2 (06:47→18:47)
[2016-12-23] MEDS: metroNIDAZOLE 500mg (Premix) 500 MG in Premix 1 BAG IV SCH ×3 (07:39→23:00)
[2016-12-23] MEDS: MAGNESIUM OXIDE 400 MG TABLET PO SCH (07:42)
[2016-12-23] MEDS: GUAIFENESIN 600 MG TABLET PO SCH ×2 (09:15→20:50)
[2016-12-23] MEDS: Calcium/Vit D 600mg/400u Tab 1 TAB TABLET PO SCH (09:16)
[2016-12-23] MEDS: Multivitamin Tab 1 TAB PO SCH (09:16)
[2016-12-23] MEDS: Montelukast Tab 10 MG TAB PO SCH (09:16)
[2016-12-23] MEDS: CITALOPRAM 20 MG TABLET PO SCH (09:16)
[2016-12-23] MEDS: LORATADINE 10 MG TABLET PO SCH (09:16)
[2016-12-23] MEDS: ALPRAZolam Tab 0.25 MG TABLET PO SCH ×2 (09:16→14:59)
[2016-12-23] MEDS: IBUPROFEN 800 MG TABLET PO PRN ×2 (09:16→12:58)
[2016-12-23] MEDS: ASCORBIC ACID 500 MG TABLET PO SCH (09:16)
[2016-12-23] MEDS: AmLODIPine Tab 2.5 MG TABLET PO SCH (09:17)
[2016-12-23] MEDS: BuPROPion SR Tab 150 MG TAB PO SCH (09:17)
--- NOTE | 2016-12-23 09:20 | PT.PROG ---
Progress Note Progress Note: S: Pt reports that she is doing fine, that she is hoping that she is doing well enough to go home sometime tomorrow. O: Pt was found sitting at EOB with nursing on 2.3 L O2 via NC, IV in place. Treatment consisted of: ambulation 150' with S and 4 self selected standing rest breaks, STS 5x2, each LE: seated marching 20x, LAQ 15x2, seated hip ab/ adduciton 20x, ankle pumps 30x. Pt was left in bed, call light within reach, bed alarm set, and nursing aware. A: Pt required multiple self-selected rest breaks throughout PT treatment session to keep O2 saturation in 88% and higher. Pt was able to actively participate but required prompting with pursed lip breathing to maintain O2 saturation. P: Continue to treat to address goals and objectives in POC.
--- NOTE | 2016-12-23 10:02 | PDOC(PROG) ---
Date and Time of Service: 12/23/2016 9:59 AM Interval History: Subjective Patient feels better compared to when she came in. She came in with history of shortness of breath which was going on for 3-4 days before she came in. She did report cough but nothing is coming up. There is no fever and no shakes. She did report some neck pain she said the day before and that seemed to be improved. She is feeling better overall compared to when she came in. Shortness of breath was related to exertion. She is normally on oxygen about 3 L 24 /7. She's been on it for 2-3 years. She continued to smokes few cigarettes during the week day and 10 and maybe more over the weekend. Objective : Data - Labs CBC and BMP: 12/22/16 04:30 12/22/16 04:30 Objective : Exam - General General Appearance: No Acute Distress, Cooperative, Thin - Head Head Exam: Normal Inspection, Atraumatic - Eye Eye Exam: Normal Appearance - ENT ENT Exam: Normal Exam - Neck Neck Exam: Normal Inspection - Respiratory Additional Respiratory Exam Details: Few crackles heard at the bases. - Cardiovascular Cardiovascular Exam: RRR - GI/Abdominal GI/Abdominal Exam: Normal Bowel Sounds, Non Tender, Non Distended, Soft - Rectal Rectal Exam: Deferred - External Exam: Deferred - Extremities Extremities Exam: Normal Inspection - Back Back Exam: Normal Inspection - Neurological Neurological Exam: Alert, Oriented x 3, CN II-XII Intact, Moves All Extremities Equally - Psychiatric Psychiatric Exam: Normal Affect - Integumentary Integumentary Exam: Normal Color Assessment and Plan - Patient Problems (1) Pneumonia Current Visit: Yes Status: Acute Comment: Continue current antibiotics. I think we'll add Rocephin to her medications. (2) COPD (chronic obstructive pulmonary disease) Current Visit: No Status: Acute Comment: Continue bronchodilators. She normally on Spiriva will add that to her medication. (3) Hypertension Current Visit: No Status: Acute Comment: Same medication
[2016-12-23] MEDS: CALCIUM CARBONATE 500 MG (TUMS) CHEWABLE TABLET PO PRN ×2 (11:04→17:01)
[2016-12-23] MEDS ORDERED: AZITHROMYCIN 500 MG VIAL IV ONE (11:22)
[2016-12-23] MEDS: cefTRIAXone Inj 1 GM in Sodium Chloride 0.9% 100 ML IV SCH (11:28)
[2016-12-23] MEDS: TIOTROPIUM BROMIDE 18 MCG CAPSULE INH SCH (13:39)
[2016-12-23] MEDS: NORMAL SALINE 10 ML SYRINGE FLUSH IVP PRN (15:00)
--- NOTE | 2016-12-23 16:56 | PT.PROG ---
Progress Note Progress Note: S. Patient stated that she is tired this afternoon however is willing to do therapy. O. Patient performed seated exercises in the form of; long arc quads, heel toe raises, marches all x 15. Sit to stands x 5. Patient ambulated 150 feet around the nurses station. she was left in the restroom and nursing was notified. A. Patient tolerated therapy well this afternoon. she continues to require short rest breaks during exercise to recover breathing. She struggles with weakness and would continue to benefit from skilled therapy to increase strength and endurance. P. continue POC.
[2016-12-23] MEDS: ATORVASTATIN 10 MG TABLET PO SCH (20:51)
[2016-12-23] MEDS: DOCUSATE 100 MG CAPSULE PO SCH (20:51)
[2016-12-24 04:35] LABS: BASOPHILS # (AUTO) 0.06 10*3/UL; BASOPHILS % (AUTO) 0.8 % (0-1); EOSINOPHILS # (AUTO) 0.15 10*3/UL; EOSINOPHILS % (AUTO) 2.1 % (0-8); HEMATOCRIT 36.5 % (37.0-47.0); LYMPHOCYTES # (AUTO) 1.47 10*3/uL; MEAN CORPUSCULAR HEMOGLOBIN 25.6 PG (27-31); MEAN CORPUSCULAR HGB CONC 30.1 g/dL (33-37); MEAN CORPUSCULAR VOLUME 85.1 FL (81-99); MEAN PLATELET VOLUME 8.3 FL (7.4-12.2); MONOCYTES # (AUTO) 1.17 10*3/UL (0.3-0.8); MONOCYTES % (AUTO) 16.4 % (5-15); NEUTROPHILS # (AUTO) 4.26 10*3/UL; NEUTROPHILS % (AUTO) 60 % (50-80); PLATELET MORPHOLOGY COMMENT NORMAL MORPHOLOGY (NORM); RBC MORPHOLOGY COMMENT NORMAL MORPHOLOGY (NORM); RED BLOOD COUNT 4.29 10^6/uL (4.20-5.40); WBC MORPHOLOGY COMMENT NORMAL MORPHOLOGY (NORM)
[2016-12-24 04:39] LABS: BLOOD UREA NITROGEN 10 mg/dL (7-22); CALCIUM 9.5 mg/dL (8.7-10.7); SERUM ALBUMIN 3.2 g/dL (3.5-4.8)
[2016-12-24] MEDS: TIOTROPIUM BROMIDE 18 MCG CAPSULE INH SCH (06:48)
[2016-12-24] MEDS: FLUTICASONE HFA 110 MCG - 12 GM INHALER INH SCH ×2 (06:49→10:59)
[2016-12-24] MEDS: DULERA INH SCH (07:07)
[2016-12-24] MEDS: NORMAL SALINE 10 ML SYRINGE FLUSH IVP PRN (07:21)
[2016-12-24] MEDS: metroNIDAZOLE 500mg (Premix) 500 MG in Premix 1 BAG IV SCH (07:26)
[2016-12-24] MEDS: MAGNESIUM OXIDE 400 MG TABLET PO SCH (07:27)
[2016-12-24 08:30] VITALS: RESP 18; TEMP 98.2
[2016-12-24] MEDS: GUAIFENESIN 600 MG TABLET PO SCH (08:59)
--- NOTE | 2016-12-24 08:59 | DCSUMMARY ---
Hospitalization Summary Admit Date: 12/21/16 Discharge Date: 12/24/16 Hospital Course: Discharge diagnoses 1. Bilateral lower lobe pneumonias greater on the left side with small left pleural effusion 2. Bullous emphysema on oxygen 3 L a minute 3. History of breast cancer status post lumpectomy and radiation 2006 4. Previous angiography with no interventions 5. Hypertension 6. Osteopenia 7. Tobacco abuse 8. pulmonary hypertension Hospital course This is a 71 years old female with medical history significant for history of COPD on oxygen 3 L, hypertension, history of previous breast cancer status post lumpectomy and radiation in 2006, osteopenia who continued to smoke who presented to the ER complaining from shortness of breath that started the day before admission she been using her inhaler without much improvement in the ER evaluation suggested left lower lobe pneumonia white count was 15,000 she was given antibiotics and was admitted. She was admitted by Dr. Rodirguez please see his note. There was a concern on the x ray there may be a mass so she had a CT of the chest which showed bilateral infiltrate in the lower lobes more on the left compared to the right with small left pleural effusion there was no PE and there was no mass. There was also bullous emphysema and pulmonary hypertension. Because of the concern that maybe this was aspiration pneumonia she had a swallowing evaluation and it was negative for aspiration. she had an ECHO which showed moderate pulmonary hypertension. We continued with antibiotics therapy I saw her later on during hospital stay she was making improvement we continued antibiotic. I saw her again on day of discharge she was doing better she said she is very close to her baseline and she felt much improved. She was not tachycardic she was not tachypneic and blood pressure was normal and her white count went back to normal so I thought we can discharge home and follow-up with her physician as an outpatient. We elected to give her another IV antibiotic dosage on the day of discharge then discharged her home. She will need repeat x-ray to ensure resolution. She was advised to quit smoking. Laboratory Results 12/21/16 12/21/16 12/21/16 Range/Units 10:13 10:30 11:41 WBC 15.73 H (4.8-10.8) 10^3/uL RBC 4.73 (4.20-5.40) 10^6/uL Hgb 12.0 (12.0-16.0) g/dL Hct 39.8 (37.0-47.0) % MCV 84.1 (81-99) FL MCH 25.4 L (27-31) PG MCHC 30.2 L (33-37) g/dL RDW Std Deviation 46.9 (39-50) fL RDW Coeff of Kevin 15.4 H (11.5-14.5) % Plt Count 374 H (140-350) 10*3/uL MPV 8.3 (7.4-12.2) FL Immature Gran % (Auto) 0.3 (0-5) % Neut % (Auto) 82.7 H (50-80) % Lymph % (Auto) 8.3 L (10-50) % Taylor % (Auto) 8.1 (5-15) % Eos % (Auto) 0.3 (0-8) % Baso % (Auto) 0.3 (0-1) % Immature Gran # (Auto) 0.05 10*3/UL Neut # (Auto) 13.02 10*3/UL Lymph # (Auto) 1.30 10*3/uL Taylor # (Auto) 1.27 H (0.3-0.8) 10*3/UL Eos # (Auto) 0.05 10*3/UL Baso # (Auto) 0.04 10*3/UL WBC Morphology Comment Normal morphology (NORM) Plt Morphology Comment Normal morphology (NORM) RBC Morph Comment Normal morphology (NORM) VBG pH 7.46 H (7.32-7.42) VBG pCO2 42 L (45-55) mmHg VBG HCO3 30 H (22-26) mmol/L VBG Base Excess 6 H (-2-2) MMOL/L Sodium 135 (135-145) meq/L Potassium 4.0 (3.8-5.2) meq/L Chloride 96 L (98-112) meq/L Carbon Dioxide 34 H (23-33) meq/L Anion Gap 5 (5-20) BUN 8 (7-22) mg/dL Creatinine 0.4 L (0.50-1.20) mg/dL Estimated GFR Clinical Services Director BUN/Creatinine Ratio 20.00 (6-20) Glucose 249 H (78-110) mg/dL Calculated Osmolality 285.0 (267-292) mOsm/kg Lactic Acid (0.70-2.10) MMOL/L Calcium 9.5 (8.7-10.7) mg/dL Phosphorus (2.4-4.3) mg/dl Total Bilirubin 0.7 (0.3-1.2) mg/dL AST 27 (8-39) IU/L ALT 25 (9-52) IU/L Alkaline Phosphatase 99 (38-126) IU/L Troponin I < 0.012 (< 0.040) ng/mL Total Protein 8.1 H (6.1-8.0) g/dL Albumin 3.7 (3.5-4.8) g/dL Globulin 4.4 H (2.50-4.10) g/dL Albumin/Globulin Ratio 0.80 L (1.3-2.0) mg/g Legionella Antibody Negative (Negative) 12/21/16 12/22/16 12/24/16 Range/Units 11:45 04:30 04:15 WBC 10.89 H 7.12 (4.8-10.8) 10^3/uL RBC 4.22 4.29 (4.20-5.40) 10^6/uL Hgb 11.0 L 11.0 L (12.0-16.0) g/dL Hct 35.8 L 36.5 L (37.0-47.0) % MCV 84.8 85.1 (81-99) FL MCH 26.1 L 25.6 L (27-31) PG MCHC 30.7 L 30.1 L (33-37) g/dL RDW Std Deviation 46.8 44.9 (39-50) fL RDW Coeff of Kevin 15.4 H 14.9 H (11.5-14.5) % Plt Count 315 341 (140-350) 10*3/uL MPV 8.3 8.3 (7.4-12.2) FL Immature Gran % (Auto) 0.3 0.1 (0-5) % Neut % (Auto) 73.8 60 (50-80) % Lymph % (Auto) 12.5 20.6 (10-50) % Taylor % (Auto) 12.4 16.4 H (5-15) % Eos % (Auto) 0.8 2.1 (0-8) % Baso % (Auto) 0.2 0.8 (0-1) % Immature Gran # (Auto) 0.03 0.01 10*3/UL Neut # (Auto) 8.04 4.26 10*3/UL Lymph # (Auto) 1.36 1.47 10*3/uL Taylor # (Auto) 1.35 H 1.17 H (0.3-0.8) 10*3/UL Eos # (Auto) 0.09 0.15 10*3/UL Baso # (Auto) 0.02 0.06 10*3/UL WBC Morphology Comment Normal morphology Normal morphology (NORM) Plt Morphology Comment Normal morphology Normal morphology (NORM) RBC Morph Comment Normal morphology Normal morphology (NORM) VBG pH (7.32-7.42) VBG pCO2 (45-55) mmHg VBG HCO3 (22-26) mmol/L VBG Base Excess (-2-2) MMOL/L Sodium 138 139 (135-145) meq/L Potassium 4.0 4.2 (3.8-5.2) meq/L Chloride 101 100 (98-112) meq/L Carbon Dioxide 33 35 H (23-33) meq/L Anion Gap 4 L 4 L (5-20) BUN 8 10 (7-22) mg/dL Creatinine 0.5 0.4 L (0.50-1.20) mg/dL Estimated GFR Clinical Services Director BUN/Creatinine Ratio 16.00 25.00 H (6-20) Glucose 138 H 119 H (78-110) mg/dL Calculated Osmolality 285.0 287.0 (267-292) mOsm/kg Lactic Acid 0.6 L (0.70-2.10) MMOL/L Calcium 9.0 9.5 (8.7-10.7) mg/dL Phosphorus 3.9 (2.4-4.3) mg/dl Total Bilirubin 0.4 (0.3-1.2) mg/dL AST 16 (8-39) IU/L ALT 30 (9-52) IU/L Alkaline Phosphatase 87 (38-126) IU/L Troponin I (< 0.040) ng/mL Total Protein 7.1 (6.1-8.0) g/dL Albumin 3.3 L 3.2 L (3.5-4.8) g/dL Globulin 3.9 (2.50-4.10) g/dL Albumin/Globulin Ratio 0.80 L (1.3-2.0) mg/g Legionella Antibody (Negative) Discharge instruction Diet regular Activity as started Medications Home Medications Ascorbic Acid [Vitamin C] 1 tab PO BID 06/21/11 [History Confirmed 12/21/16] Glucosa Talavera 2Kcl/Chondroitin Talavera [Glucosamine Chondroitin Caplet] 1 each PO BID # 0 10/29/11 [Clinic Confirmed 12/21/16] Magnesium 250 mg PO BID #0 10/29/11 [Clinic Confirmed 12/21/16] Cetirizine HCl [Zyrtec] 1 mg PO DAILY tab 12/31/13 [History Confirmed 12/21/16] Calcium Citrate/Vitamin D3 [Citracal-Vit D 200 mg-250 Tab] 1 each PO DAILY tab 05/07/15 [History Confirmed 12/21/16] Guaifenesin [Mucinex] 1,200 mg PO BID #60 tab 05/07/15 [Clinic Confirmed ] Pnv95/Iron Fum/Folic Acid [ Caplet] 1 each PO DAILY tab 05/07/15 [ History Confirmed 12/21/16] Atorvastatin Calcium [Lipitor] 10 mg PO DAILY #90 tab 12/04/15 [Clinic Confirmed 12/21/16] Citalopram Hydrobromide [Celexa] 1 tab PO DAILY #90 tab 12/04/15 [Clinic Confirmed 12/21/16] Montelukast Sodium [Singulair] 1 tab PO QD #90 tab 04/19/16 [Clinic Confirmed ] Tiotropium Home [Spiriva] 1 puff INH DAILY #90 inh 06/09/16 [Clinic Confirmed 12/21/16] Albuterol Sulfate [Ventolin Hfa] 2 puff INH Q4-6H #1 inh 07/05/16 [Clinic Confirmed 12/21/16] Amlodipine Besylate 1 tab PO DAILY #30 tab 08/13/16 [Clinic Confirmed 12/21/16] Bupropion HCl [Wellbutrin Sr] 1 tab PO QD #30 tab 08/16/16 [Clinic Confirmed ] Mometasone/Formoterol [Dulera 200 Mcg/5 Mcg Inhaler] 2 puff INH BID #3 inhaler 10/11/16 [Clinic Confirmed 12/21/16] Alprazolam 1 tab PO TID #60 tab 12/03/16 [Clinic Confirmed 12/21/16] Fluticasone Propionate [Flovent Hfa] 1 puff INH QID #1 inh 12/03/16 [Clinic Confirmed 12/21/16] Amoxicill/Clav 875/125mg [Augmentin 875/125mg] 1 each PO BID #8 tablet 12/24/16 [Rx] Azithromycin [Zithromax] 250 mg PO DAILY #4 tab 12/24/16 [Rx] Follow-up with PCP 1-2 weeks Condition at discharge was stable for discharge Exam - Vitals Vital Signs: Vital Signs Temperature 98.2 F Temperature Source Temporal Artery Scan Pulse Rate [Apical] 89 Pulse Rate [Pulse Oximeter 92 Right] Pulse Rate 83 Respiratory Rate 18 Blood Pressure [Left Arm] 132/72 Blood Pressure [Right Arm] 126/62 Blood Pressure 121/73 Pulse Ox 95 Oxygen Flow Rate 3 Oxygen Delivery Method Nasal Cannula Height 5 ft 6 in Weight 140 lb 4.8 oz - General General Appearance: POSITIVE: No Acute Distress, Cooperative, Thin - Head Head Exam: POSITIVE: Normal Inspection, Atraumatic - Eye Eye Exam: POSITIVE: Normal Appearance - ENT ENT Exam: POSITIVE: Normal Exam - Neck Neck Exam: POSITIVE: Normal Inspection - Respiratory Additional Respiratory Exam Details: Decreased air entry with crackles at the bases I don't hear wheezing. - Cardiovascular Cardiovascular Exam: POSITIVE: RRR - GI/Abdominal GI/Abdominal Exam: POSITIVE: Normal Bowel Sounds, Non Tender, Non Distended, Soft - Rectal Rectal Exam: POSITIVE: Deferred - External Exam: POSITIVE: Deferred Exam: POSITIVE: Deferred - Extremities Extremities Exam: POSITIVE: Normal Inspection - Back Back Exam: POSITIVE: Normal Inspection - Neurological Neurological Exam: POSITIVE: Alert, Oriented x 3, CN II-XII Intact, Moves All Extremities Equally - Psychiatric Psychiatric Exam: POSITIVE: Normal Affect - Integumentary Integumentary Exam: POSITIVE: Normal Color Patient Problems - Patient Problem List (1) Pneumonia Status: Acute (2) COPD (chronic obstructive pulmonary disease) Status: Acute (3) Hypertension Status: Acute
[2016-12-24] MEDS: Calcium/Vit D 600mg/400u Tab 1 TAB TABLET PO SCH (09:00)
[2016-12-24] MEDS: DOCUSATE 100 MG CAPSULE PO SCH (09:00)
[2016-12-24] MEDS: Multivitamin Tab 1 TAB PO SCH (09:00)
[2016-12-24] MEDS: BuPROPion SR Tab 150 MG TAB PO SCH (09:01)
[2016-12-24] MEDS: LORATADINE 10 MG TABLET PO SCH (09:01)
[2016-12-24] MEDS: Montelukast Tab 10 MG TAB PO SCH (09:01)
[2016-12-24] MEDS: AmLODIPine Tab 2.5 MG TABLET PO SCH (09:01)
[2016-12-24] MEDS: CITALOPRAM 20 MG TABLET PO SCH (09:01)
[2016-12-24] MEDS: ASCORBIC ACID 500 MG TABLET PO SCH (09:07)
[2016-12-24] MEDS: ALPRAZolam Tab 0.25 MG TABLET PO SCH (09:07)
[2016-12-24] MEDS ORDERED: Sodium Chloride 0.9% 50 ML IV ONE (10:03)
[2016-12-24] MEDS: cefTRIAXone Inj 1 GM in Sodium Chloride 0.9% 100 ML IV SCH (11:17)
== END 2016-12-24 12:16 | disposition home or self-care (01) | DRG 194 ==
LOC: ER 09:51 → MED/SURG 11:41
PROVIDERS: ADMIT Internal Medicine; ATTEND Internal Medicine
DX: J18.9 Pneumonia, unspecified organism (principal); R00.0 Tachycardia, unspecified; R09.02 Hypoxemia; J91.8 Pleural effusion in other conditions classified elsewhere; J44.1 Chronic obstructive pulmonary disease with (acute) exacerbation; I10 Essential (primary) hypertension; M85.80 Other specified disorders of bone density and structure, unspecified site; Z72.0 Tobacco use; I27.2 Other secondary pulmonary hypertension
CPT/HCPCS: 36415; 71020; 80053; 84484; 85025; 86713; 93005; 93010; 94640; 96365; 99284 ×2; J0696; 71275; 80069; 82803; 83605; 87040; 93306; 94761; 97110; 97161; 97530; 97535; 97750; J1644; J3490; J7030; J7050; J7620

== ENCOUNTER → 2016-12-30 | Outpatient (CLI) | payer OTHER, BC | LOC: MMPC 09:00 | PROVIDERS: ATTEND Family Medicine | DX: J44.9 Chronic obstructive pulmonary disease, unspecified (principal); S50.811A Abrasion of right forearm, initial encounter | CPT/HCPCS: 99213; G0463 ==